=== PATIENT | female | born 1960 | race Caucasian/White ===

== ENCOUNTER 2018-01-18 10:45 | Emergency (ER) | payer OTHER ==
[~2018-01-18] VITALS: Ht 160 cm; Wt 56.7 kg
--- NOTE | ~2018-01-18 | EKG ---
[address] [address] ELECTROCARDIOGRAM REPORT Name: MOIZ GONZALEZ TYLER Room #: DEP [facility]#: [id number] Admission: 01/18/18 Attend Phys: Discharge: 01/18/18 Date of : 58 Report #: [id number] THIS REPORT FOR: //name// [facility] ED Test Date: 2018-01-18 Test Time: 10:52:52 Pat Name: MOIZ GONZALEZ Department: Room: Gender: F Investment Accounting Clerk: ABRAM : 1960 Requested By: Mp Schreiber Order Number: [id number] MD: Lukas Arriola Measurements Intervals [place] Rate: 61 P: 66 WA: 174 QRS: 33 QRSD: 96 T: 32 QT: 446 QTc: 450 Interpretive Statements Sinus rhythm Borderline T abnormalities, anterior leads Compared to ECG 11/29/2012 19:44:15 T-wave abnormality now present Electronically Signed On 01-18-2018 15:18:10 CDT by Lukas Arriola [email or web address] <ELECTRONICALLY SIGNED> By: Lukas Arriola MD 01/18/18 1518 1052 1052 Lukas Arriola MD /CARLOS
[~2018-01-18 10:45] MED LIST: ADVAIR 250-501 EACH INH; CELEXA 20 MG TA20 M1 PO; SPIRIVA INH; [UNRECOGNIZED DRUG - CODE] PO
[2018-01-18] MEDS ORDERED: BREO ELLIPTA 11 EACH INH (10:54)
[2018-01-18 12:10] LABS: ABSOLUTE NEUTROPHILS 4.6 thou/uL (1.4-8.2); BASOPHILS 0.2 % (0.0-2.0); EOSINOPHILS 0.5 % (0.0-3.0); HEMATOCRIT 44.9 % (37.0-47.0); HEMOGLOBIN 15.3 gm/dL (12.0-15.0); LYMPHOCYTES 9.9 % (24.0-44.0); MCH 31.5 pg (26.0-34.0); MCHC 34.2 g/dL (28.0-37.0); MCV 92.1 fL (80.0-100.0); MONOCYTES 3.7 % (1.0-8.0); PLATELET COUNT 141 thou/uL (150-400); POLYS 85.7 % (36.0-66.0); RBC 4.87 mil/uL (4.20-5.00); RDW 13.9 % (10.5-14.5); WBC 5.4 thou/uL (4.0-11.0)
[2018-01-18 12:12] LABS: URINE BILIRUBIN NEGATIVE (Negative); URINE BLOOD TRACE (Negative); URINE CLARITY CLEAR; URINE COLOR YELLOW; URINE GLUCOSE-RANDOM* NEGATIVE (Negative); URINE KETONES 1+ (Negative); URINE LEUKOCYTES-REFLEX NEGATIVE (Negative); URINE NITRITE-REFLEX NEGATIVE (Negative); URINE PROTEIN (DIPSTICK) NEGATIVE (Negative); URINE UROBILINOGEN 0.2 E.U./dl (0.2-1.0)
[2018-01-18 12:16] LABS: CALCIUM 9.2 mg/dL (8.5-10.1); CREATININE 0.8 mg/dL (0.6-1.0); POTASSIUM 4.1 mmol/L (3.5-5.1)
[2018-01-18 12:51] VITALS: BP 116/70
[2018-01-18] MEDS ORDERED: ANTIVERT25 MG PO (13:36)
[2018-01-18] MEDS ORDERED: ZOFRAN ODT4 MG PO (13:36)
== END 2018-01-18 13:45 | disposition home or self-care (01) ==
LOC: ER 10:45
PROVIDERS: Emergency Medicine
DX: H81.10 Benign paroxysmal vertigo, unspecified ear (principal); J45.909 Unspecified asthma, uncomplicated; F17.210 Nicotine dependence, cigarettes, uncomplicated; Z88.1 Allergy status to other antibiotic agents

== ENCOUNTER → 2018-11-23 | Outpatient (CLI) | payer OTHER ==
[~2018-11-23] MED LIST changes: +ANTIVERT25 MG PO; +BREO ELLIPTA 11 EACH INH; +ZOFRAN ODT4 MG PO
== END ==
LOC: RAD 13:45
DX: J43.8 Other emphysema (principal)

== ENCOUNTER → 2019-04-28 | Outpatient (CLI) | payer OTHER | LOC: RAD 14:35 | DX: Z12.31 Encounter for screening mammogram for malignant neoplasm of breast (principal) ==

== ENCOUNTER → 2019-05-03 | Outpatient (CLI) | payer OTHER | LOC: ULTRA 01:42 | DX: N63.20 Unspecified lump in the left breast, unspecified quadrant (principal); N63.10 Unspecified lump in the right breast, unspecified quadrant; R92.2 Inconclusive mammogram ==

== ENCOUNTER → 2020-06-11 | Outpatient (CLI) | payer OTHER | LOC: CAT 15:56 | PROVIDERS: ATTEND Internal Medicine | DX: Z12.2 Encounter for screening for malignant neoplasm of respiratory organs (principal); R91.8 Other nonspecific abnormal finding of lung field; J98.4 Other disorders of lung; Z87.891 Personal history of nicotine dependence ==

== ENCOUNTER → 2020-10-29 | Outpatient (CLI) | payer BC, OTHER | LOC: CAT 08:13 → EDSTATUS 13:24 → CAT 14:07 | PROVIDERS: ATTEND Internal Medicine | DX: R91.1 Solitary pulmonary nodule (principal); I25.10 Atherosclerotic heart disease of native coronary artery without angina pectoris; I70.0 Atherosclerosis of aorta ==

== ENCOUNTER → 2021-03-31 | Outpatient (CLI) | payer OTHER | LOC: BC 11:58 → CAT 11:58 | PROVIDERS: ATTEND Nurse Practitioner | DX: Z13.6 Encounter for screening for cardiovascular disorders (principal); I25.10 Atherosclerotic heart disease of native coronary artery without angina pectoris; E78.00 Pure hypercholesterolemia, unspecified ==

== ENCOUNTER → 2021-03-31 | Outpatient (CLI) | payer BC, OTHER | LOC: BC 11:54 | PROVIDERS: ATTEND Nurse Practitioner | DX: Z12.31 Encounter for screening mammogram for malignant neoplasm of breast (principal) ==

== ENCOUNTER → 2021-04-14 | Outpatient (CLI) | payer BC, OTHER | LOC: SJCVCIMAG 08:36 | PROVIDERS: ATTEND Internal Medicine Cardiovascular Disease | DX: I49.3 Ventricular premature depolarization (principal); R93.1 Abnormal findings on diagnostic imaging of heart and coronary circulation; J44.9 Chronic obstructive pulmonary disease, unspecified; R06.09 Other forms of dyspnea; E78.5 Hyperlipidemia, unspecified; Z87.891 Personal history of nicotine dependence ==

== ENCOUNTER → 2021-04-18 | Outpatient (CLI) | payer BC | LOC: CAT 10:47 | PROVIDERS: ATTEND Internal Medicine | DX: R91.1 Solitary pulmonary nodule (principal); J43.2 Centrilobular emphysema; I70.0 Atherosclerosis of aorta; I25.10 Atherosclerotic heart disease of native coronary artery without angina pectoris; J98.4 Other disorders of lung ==

== ENCOUNTER → 2021-04-23 | Outpatient (CLI) | payer BC, OTHER ==
[~2021-04-23] VITALS: Ht 160 cm; Wt 58.1 kg
[~2021-04-23] MED LIST changes: +MUCINEX600 MG PO; +PROAIR HFA8.5 GM INH; +ROSUVASTATIN CA20 MG PO
[2021-04-23 09:00] VITALS: BP 160/79
--- NOTE | 2021-04-23 13:57 | CATHLAB ---
[facility] [place] [address] INVASIVE PROCEDURE REPORT Name: MOIZ GONZALEZ Room #: REG MARGIE JosieJosie#: [id number] Admission: 04/23/21 Attend Phys: Aubrey Acuña MD Discharge: Date of : 58 Report #: [id number] THIS REPORT FOR: cc: Mayelin Daniels Beth RNP Park, Jin S. MD ~ APPROVED REPORT Study performed: 04/23/2021 09:58:00 Patient Details Patient Status: Out-Patient Room #: The patient is a 60 year-old female Event Personnel [place], RTR Monitor, Aubrey Acuña Studio Receptionist, Nay Singh RN RN, Ganga Rob RTR Scrub Procedures Performed Art Access - R femoral artery* Left Heart Cath w/or w/o Coronaries [id number] [facility] [address] Initial Mod Sed Same Phys/QHP Gr5y 321242 78678 Mod Sed Same Phys/QHP Ea 943870 Hemostasis with Manual pressure Indication Dyspnea, Positive stress test, Chest pain Risk Factors Chronic Lung DiseaseHypercholesterolemia, Coronary Artery Disease, Tobacco History () Procedure Narrative The Right Groin^ was infiltrated with 1% Lidocaine subcutaneous anesthesia. A PINNACLE 4FR Sheath #[id number] sheath was inserted into the RFA^. Coronary angiography was performed using coronary diagnostic catheters. The right coronary system was accessed and visualized with a JR4 catheter. The left coronary system was accessed and visualized with a JL4 catheter. The left ventricle was accessed and visualized with a JR4 catheter. Hemostasis was obtained with manual pressure following sheath removal without any complications. The patient tolerated the procedure well and there were no complications associated with the procedure. There was no hematoma. [facility] [address] [place] [address] INVASIVE PROCEDURE REPORT Name: MOIZ GONZALEZ Room #: REG [facility]#: [id number] Admission: 04/23/21 Attend Phys: Aubrey Acuña MD Discharge: Date of : 58 Report #: [id number] Intraoperative Conscious Sedation Sedation start time: 10:45 Case end Time: 11:17 Fentanyl 50 mcg Versed 1 mg Fluoro Time: 1.80 minutes Dose: DAP 1984.60 cGycm2 300 mGy Contrast Type and Amount: Omnipaque 60 ml Coronary Angiography The patient's coronary anatomy is right dominant. Diagnostic Cath Left Main The left main artery is a large-caliber vessel, patent with no flow-limiting lesions. LAD The LAD is a moderate-sized caliber vessel, tortuous as it travels down the anterior wall and wraps around the apex. There is mild disease in the proximal and mid segments, less than 20%. Diagonal 1 This is a small caliber vessel, patent with no flow-limiting lesions. Diagonal 2 This is a small to moderate-sized caliber vessel, patent with no flow-limiting lesions. Circumflex This is a moderate-sized caliber vessel with mild disease in the proximal segment. OM1 This is a small to moderate-sized caliber vessel, patent with no flow-limiting lesions. OM2 This is a moderate-sized caliber vessel with mild disease in the proximal segment, 30%. Right Coronary The RCA is calcified with mild disease in the proximal and mid segments, 30%. R PDA This is a moderate-sized caliber vessel, patent with no flow-limiting lesions. RPLV This is a small to moderate-sized caliber vessel, patent with no flow-limiting lesions. Left Ventriculography Left Ventriculography was not performed. Ejection Fraction was 55-60% based off patient's Nuclear Cardiac Stress Test. An LVEDP was measured and there is no gradient across the outflow tract. Hemodynamics The aortic pressure is 135/69 mmHg with a mean of 40 mmHg. The left ventricular pressure is 131/-1 mmHg with a mean of mmHg. The left ventricular end diastolic pressure is 8 mmHg. [facility] [address] [place] [address] INVASIVE PROCEDURE REPORT Name: ELIJAH GONZALEZYA Room #: REG CL [facility].#: [id number] Admission: 04/23/21 Attend Phys: Aubrey Acuña MD Discharge: Date of : 58 Report #: [id number] Conclusion 1. 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 2. There is normal LV systolic function. 3. This is a right dominant system. 4. Recommend guideline directed medical therapy. <ELECTRONICALLY SIGNED> By: Aubrey Acuña MD 04/23/21 1357 135 135 Aubrey Acuña MD /INF
== END | disposition home or self-care (01) ==
LOC: CATH 07:48
PROVIDERS: ATTEND Internal Medicine Cardiovascular Disease
DX: R07.9 Chest pain, unspecified (principal); I25.10 Atherosclerotic heart disease of native coronary artery without angina pectoris; R94.39 Abnormal result of other cardiovascular function study; R06.00 Dyspnea, unspecified; E78.00 Pure hypercholesterolemia, unspecified; Z98.890 Other specified postprocedural states; Z87.891 Personal history of nicotine dependence; Z79.899 Other long term (current) drug therapy; Z91.040 Latex allergy status

== ENCOUNTER 2021-06-10 06:12 | Outpatient (CLI) | payer BC, OTHER ==
[~2021-06-10] VITALS: Ht 160 cm; Wt 56.7 kg
[~2021-06-10 06:12] MED LIST changes: +ASA81BEC PO; +ONE-DAILY MULT1 EAC1 PO; +PROBIOTIC1 EAC7 PO
[2021-06-10 07:05] VITALS: BP 131/70
--- NOTE | 2021-06-11 15:08 | PATH ---
[facility] [address] [place] [address] PATHOLOGY RPT PROCEDURE Name: MOIZ GONZALEZ Room #: DEP Neftail Amos.#: [id number] Admission: 06/10/21 Date of : 58 Discharge: 06/10/21 Report #: [id number] Path Case #: [id number] [facility] Accession Number: [id number] . 01 Material submitted: . lung - RUL TISSUE BIOPSY. Modifiers: right, upper, LOBE . 02 Diagnosis: Lung, right upper lobe tissue, biopsy: - Fragments of benign bronchial tissue with moderate chronic inflammation. - Negative for dysplasia and malignancy within the sections examined. (IUV/db; 06/11/2021) LBQ 06/11/2021 1054 Local . 02 Electronically signed: . Delia Alejo MD, Pathologist NPI- [id number] . 01 Gross description: . The specimen is received in formalin, labeled "Moiz Gonzalez, HEMA tissue". Received are multiple pale kilgore to red-brown needle core segments measuring 1.7 x 0.4 x 0.1 cm in aggregate dimensions. The specimen is filtered and submitted entirely in A1. ([facility]; 06/10/2021) NRI/NRI 06/10/2021 2208 Local . 02 Pathologist provided ICD-10: J42 . 02 CPT . 745797 Specimen Comment: A courtesy copy of this report has been sent to [phone], [phone] Specimen Comment: [id number] Specimen Comment: Report sent to / DR WANG Specimen Comment: A duplicate report has been generated due to demographic updates. Performed at: [address], [place] [id number] MD Dawit De Anda MD Phone: [phone] Performed at: [address] [id number] MD Delia Alejo MD Phone: [phone]
== END 2021-06-10 14:30 | disposition home or self-care (01) ==
LOC: PUL 06:12 → TBA 06:21 → PUL 10:17
PROVIDERS: ATTEND Pediatrics
DX: J42 Unspecified chronic bronchitis (principal); R04.2 Hemoptysis; R93.89 Abnormal findings on diagnostic imaging of other specified body structures; Z98.890 Other specified postprocedural states; Z20.822 Contact with and (suspected) exposure to COVID-19; Z79.899 Other long term (current) drug therapy; Z91.040 Latex allergy status; Z88.8 Allergy status to other drugs, medicaments and biological substances
CPT/HCPCS: 62110; 62900; 70005

== ENCOUNTER → 2021-06-30 | Outpatient (CLI) | payer BC, OTHER | LOC: RAD 12:36 | PROVIDERS: ATTEND Internal Medicine | DX: J43.2 Centrilobular emphysema (principal); R91.8 Other nonspecific abnormal finding of lung field; R04.2 Hemoptysis ==

== ENCOUNTER → 2021-08-13 | Outpatient (CLI) | payer BC | LOC: RAD 13:49 | PROVIDERS: ATTEND Internal Medicine | DX: J44.9 Chronic obstructive pulmonary disease, unspecified (principal) ==

== ENCOUNTER → 2021-08-14 | Outpatient (CLI) | payer BC | LOC: CAT 09:03 | PROVIDERS: ATTEND Internal Medicine | DX: R91.8 Other nonspecific abnormal finding of lung field (principal); J98.11 Atelectasis ==

== ENCOUNTER → 2021-08-21 | Outpatient (CLI) | payer BC | LOC: RAD 09:05 | PROVIDERS: ATTEND Internal Medicine | DX: J92.9 Pleural plaque without asbestos (principal); J98.4 Other disorders of lung; R91.8 Other nonspecific abnormal finding of lung field ==

== ENCOUNTER → 2021-09-03 | Outpatient (CLI) | payer BC ==
[~2021-09-03] MED LIST changes: +ALBUTEROL2.5 MG/0.1 INH
== END ==
LOC: RAD 10:30
PROVIDERS: ATTEND Internal Medicine
DX: R91.8 Other nonspecific abnormal finding of lung field (principal)

== ENCOUNTER → 2021-09-30 | Outpatient (CLI) | payer BC | LOC: RAD 09:52 | PROVIDERS: ATTEND Internal Medicine | DX: R91.8 Other nonspecific abnormal finding of lung field (principal) ==